=== PATIENT | male | born 1980 | race Two or more races ===

== ENCOUNTER 2023-03-23 15:30 | Emergency (ER) | payer SELFPAY ==
[~2023-03-23] VITALS: Ht 162.6 cm; Wt 81.6 kg
[2023-03-23 15:34] VITALS: O2SAT 96
--- NOTE | 2023-03-23 15:57 | NUR ---
Patient presented to the ER with C/O 03/04 (RT) foot pain/discomfort, S/P fall down a flight of stairs. Patient is A/O X 4, denies palpitation/nausea/vomiting. Patient observed with abrasion to the lateral side and heel, also bruising/redness, swelling and painful to touch with limited ROM. Patient seen by the provider X-Ray ordered and completed. Patient is stable on the stretcher in the lowest position, wheels locked, call zimmer within reach and awaiting disposition.
[2023-03-23] MEDS ORDERED: NAPROXEN 500 MG TABLET PO ONE (16:15)
[2023-03-23] MEDS ORDERED: NAPROXEN 500 MG TABLET ONE (16:26)
[2023-03-23] MEDS ORDERED: NAPR-1164 PO (17:11)
--- NOTE | 2023-03-23 17:16 | NUR ---
Patient remains the same with no decline in his status, C/O mild pain/discomfort, previously medicated for pain (see eMAR) Patient completed all ordered test. Patient seen by the provider and cleared for discharge. Walking boot applied to (RT) foot, patient educated on proper use and care of the device. Prescription sent to patient's preferred pharmacy, educated on medication administration, side effects and the importance of compliance, verbalized understanding; discharge instructions provided. Patient stable left ambulatory with all his belongings with his daughter.
== END 2023-03-23 17:26 | disposition home or self-care (01) ==
LOC: ER 15:30
DX: S90.31XA Contusion of right foot, initial encounter (principal); Z79.899 Other long term (current) drug therapy; X50.1XXA Overexertion from prolonged static or awkward postures, initial encounter; Y93.89 Activity, other specified; Y92.89 Other specified places as the place of occurrence of the external cause; Y99.8 Other external cause status
CPT/HCPCS: 73610; 73630; 73650; A4663